=== PATIENT | female | born 2000 | race Hispanic/Latino ===

== ENCOUNTER 2025-04-25 09:20 | Outpatient (CLI) | payer OTHER, SELFPAY | END 2025-04-25 09:21 | disposition home or self-care (01) | LOC: ANHGOSHLAB 09:21 | PROVIDERS: Visit Provider Student in an Organized Health Care Education/Training Program | DX: O20.0 Threatened abortion (principal); Z3A.00 Weeks of gestation of pregnancy not specified | CPT/HCPCS: 36415; 84702 ==

== ENCOUNTER 2025-04-26 15:35 | Emergency (ER) | payer OTHER, SELFPAY ==
[2025-04-26 15:42] VITALS: BP 125/77; PULSE 73; RESP 16; TEMP 36.6; O2SAT 100
--- NOTE | 2025-04-26 16:30 | ED.PREGNANCY ---
HPI - General Chief complaint: Vaginal Bleeding Stated complaint: 8 weeks , vag bleeding for 3 days Time Seen by Provider: 04/26/25 16:08 History of Present Illness HPI Narrative: This is a 25-year-old female a approximately 10 weeks by last menstrual period who presents to the ED for vaginal bleeding. Patient states for the past 3 days, she has been having a brown discharge that appears somewhat like blood. She had an hCG performed when she 1st found out that she was and it was 5700. She began having this bleeding and had an hCG drawn a few days ago which was 7000 and then another 1 2 days ago which was 5700. She continues to have this bleeding was told to have her recheck level on Monday but was concerned so she came in today Related Data Home Medications ?Medication ?Instructions ?Recorded ?Confirmed ?Last Taken ?Type No Home Medications 12/09/24 12/09/24 Unknown History Allergies Allergy/AdvReac Type Severity Reaction Status Date / Time No Known Allergies Allergy Verified 04/26/25 15:36 Review of Systems Review of Systems: Gen.: Denies fevers or chills Eyes: Denies eye pain or visual change ENT: Denies congestion Respiratory: Denies shortness of breath or cough CV: Denies chest pain or palpitations GI: Denies abdominal pain nausea, emesis or diarrhea denies burning, urgency, frequency or hematuria Musculoskeletal: Denies back pain or muscle pain Neuro: Denies numbness, tingling, weakness or focal weakness Skin: Denies rash Except as documented, all other systems reviewed and negative [facility] Family History Family History Father Diabetes mellitus Grandparent Diabetes mellitus Social History Social History Smoking status: Current every day smoker Tobacco type: e-cigarettes/vaping Alcohol intake: never Substance use: never Substance use type: does not use Do You Feel Safe in your Home?: Yes Lack of Transportation: No Lack of Food: Never True Current Housing: I Have Housing Concerned About Future Housing: No Difficulty Paying Gas/Electric Bills: No Difficulty Paying for Meds: No Currently Unemployed: No Education: Associate Degree Difficulty w/ Childcare or Family Care: No Living arrangements: alone Additional living arrangements comments: single Occupation/Education: occupation Additional occupation/education comments: [employer] Gender identity (if verbalized by the patient): Female Sexual Orientation (if Verbalized by the Patient): Bisexual Exam Narrative: APPEARANCE: No acute distress, nontoxic, resting in bed EYES: EOMI HEENT: Normocephalic, atraumatic, OMM RESPIRATORY: No respiratory distress Clear to auscultation bilaterally with no rhonchi wheezing or rales. CARDIOVASCULAR: Regular rate and rhythm without murmurs rubs or gallops. ABDOMINAL: Soft, nontender, nondistended, no rebound or guarding MUSCULOSKELETAl: Moves all extremities. No clubbing, cyanosis or edema. NEURO: Awake and alert. Following commands, speech normal, no focal deficits SKIN:: Warm, dry. No rashes lesions or abrasions PSYCHIATRIC: Normal affect/mood, Course Vital Signs Vital signs: Vital Signs Temperature 97.9 F 04/26/25 15:42 Pulse Rate 73 04/26/25 15:42 Respiratory Rate 16 04/26/25 15:42 Blood Pressure 125/77 04/26/25 15:42 Pulse Oximetry 100 04/26/25 15:42 Oxygen Delivery Room Air 04/26/25 15:42 Temperature 97.9 F 04/26/25 15:42 Pulse Rate 73 04/26/25 15:42 Respiratory Rate 16 04/26/25 15:42 Blood Pressure 125/77 04/26/25 15:42 Pulse Oximetry 100 04/26/25 15:42 Oxygen Delivery Room Air 04/26/25 15:42 MDM - OB/Uterine Contractions MDM Narrative Medical decision making narrative: 25-year-old female Presenting for vaginal bleeding in 1st trimester. On initial evaluation patient was in no acute distress afebrile, hemodynamic stable. Differentials include but are not limited to: Abnormal uterine bleeding, abnormal vaginal bleeding, laceration, menses, , miscarriage, ectopic Notable exam findings: No tenderness palpation to the lower abdomen. Heart and lungs clear. I personally reviewed the patient's lab result. Notable lab findings: HCG quant 4000 which is down trending from previous Down trending hCG is likely suggestive of a miscarriage at this time. Given that she is not having any pain at this time, unlikely that she has an ectopic . Patient was educated on this expectant management and was given a referral to [facility], for further evaluation. Patient and family were agreeable to this plan. Given strict return precautions. Medical Records Attestation: I reviewed the patient's medical records. Lab Data Labs: Lab Results 04/26/25 Range/Units 16:26 Beta HCG, Quant 4172.50 mIU/ML Discharge Plan Discharge Clinical Impression: Threatened Patient Disposition: Home Condition: Stable Instructions: Antibiotic Form, Miscarriage (ED) Additional Instructions: You are likely having a miscarriage at this time. This will likely complete in the next few days to a week. You were given a referral to [facility], to follow-up in the next week for re-evaluation. Return to the ED for any new or worsening symptoms. Patient Language: Thai Prescriptions: No Action No Home Medications Follow-up/Referrals: Liz Nogueira MD [Physician, BILING[employer] INSIDE SALES REPRESENTATIVE] UNKNOWN,DOCTOR [Non-Staff]
== END 2025-04-26 17:43 | disposition home or self-care (01) ==
PROVIDERS: Emergency Provider Student in an Organized Health Care Education/Training Program; PCP Internal Medicine
DX: O20.0 Threatened abortion (principal); Z3A.10 10 weeks gestation of pregnancy
CPT/HCPCS: 36415; 84702; 99283

== ENCOUNTER 2025-04-29 19:57 | Emergency (ER) | payer OTHER, SELFPAY ==
--- NOTE | ~2025-04-29 | US_ITS ---
EXAM/PROCEDURE: US OB <=14 wk fetus w TV HISTORY: r/o ectopic COMPARISON: None available. TECHNIQUE: Endovaginal and transabdominal ultrasound performed. FINDINGS: Probable intrauterine gestational sac present. No heart tone identified. No discrete pole seen. Right ovary: 4.3 x 2.4 x 3.1 cm. Probable 2.1 cm corpus luteal cyst. Left ovary: 2.8 x 1.6 x 2.5 cm. Both ovaries otherwise appear normal in echotexture. No free fluid seen. IMPRESSION: Likely intrauterine gestation with no pole or heart tone identified. Correlate with follow-up quantitative hCG levels and short interval follow-up ultrasound in 5-7 days or sooner if clinically appropriate to confirm viability. Reviewed, dictated and finalized at location A. PROCESS MILLER HEAD ASSISTANT IMPRESSION: Likely intrauterine gestation with no pole or heart ton e identified. Correlate with follow-up quantitative hCG levels and short interv al follow-up ultrasound in 5-7 days or sooner if clinically appropriate to conf irm viability.
[2025-04-29 20:05] VITALS: TEMP 37.1
[2025-04-29] MEDS: SODIUM CHLORIDE 0.9% IV 1,000 ML 999 ML IV CONT (20:37)
[2025-04-29] MEDS: MORPHINE SULFATE (*CRX) 4 MG/ML INJ IV PUSH (20:38)
[2025-04-29] MEDS: ONDANSETRON INJ 4 MG/2 ML VIAL IV PUSH (20:55)
[2025-04-29 20:56] LABS: Hematocrit 37.8 % (37.0-47.0); Hemoglobin 12.7 g/dL (12.0-15.0); Immature Granulocyte Percent A 0.3 % (0-0.5); Lymphocytes Absolute Auto 1.73 K/mm3 (0.9-3.2); Mean Corpuscular HGB Conc 33.6 g/dl (32-36); Mean Corpuscular Hemoglobin 29.1 pg (26-34); Mean Corpuscular Volume 86.7 fl (80-100); Nucleated Red Blood Cells Absolute Auto 0.000 K/mm3 (0.0-0.012); Nucleated Red Blood Cells Perc 0.0 % (0.0-0.2); Platelet Count Result 242 k/mm3 (150-375); Red Blood Count 4.36 M/mm3 (4.2-5.4); White Blood Count 8.8 K/mm3 (4.5-10.0)
[2025-04-29 21:06] LABS: Alanine Aminotransferase 59 U/L (6-35); Albumin Level 4.6 g/dL (3.5-5.1); Alkaline Phosphatase 75 U/L (38-126); Anion Gap 10 mmol/L (4-12); Aspartate Amino Transferase 39 U/L (14-36); Bilirubin,Total 0.3 mg/dL (0.2-1.3); Blood Urea Nitrogen 11 mg/dL (7-17); Calcium 9.2 mg/dL (8.4-10.2); Carbon Dioxide 20 mmol/L (22-30); Chloride 107 mmol/L (98-107); Estimated CRCL calculation 104 ml/min; Estimated Glomerular Filt Rate > 60; Glucose 94 mg/dL (65-110); Potassium 3.9 mmol/L (3.4-5.0); Sodium 137 mmol/L (137-145); Total Protein 7.6 g/dL (6.3-8.2)
--- NOTE | 2025-04-29 21:41 | PC.NURSE ---
Radiology notified to page out US for r/o ectopic.
--- NOTE | 2025-04-29 21:59 | ED.ABDPAIN ---
HPI - Abdominal Pain General Chief Complaint: Abdominal Pain Stated Complaint: miscarriage Time Seen by Provider: 04/29/25 20:21 History of Present Illness HPI narrative: Patient is a 25-year-old female who presents to the ER with lower abdominal pain and vaginal bleeding. Patient reports she saw her OBGYN this morning. Her pain and vaginal bleeding has worsened throughout the day. Patient denies any urinary symptoms, acute back pain, or recent fevers. She reports her hormone levels have continued to go down since she was seen here on April 26, 2025. Patient reports she has not had any ultrasound to confirm an intrauterine . Related Data Home Medications ?Medication ?Instructions ?Recorded ?Confirmed ?Last Taken ?Type No Home Medications 12/09/24 12/09/24 Unknown History Allergies Allergy/AdvReac Type Severity Reaction Status Date / Time No Known Allergies Allergy Verified 04/29/25 09:58 Review of Systems Review of Systems: All systems reviewed & are unremarkable except as noted in HPI and below PMFSH Family History Family History Father Diabetes mellitus Grandparent Diabetes mellitus Social History Social History Smoking status: Current every day smoker Tobacco type: e-cigarettes/vaping Alcohol intake: never Substance use: never Substance use type: does not use Do You Feel Safe in your Home?: Yes Lack of Transportation: No Lack of Food: Never True Current Housing: I Have Housing Concerned About Future Housing: No Difficulty Paying Gas/Electric Bills: No Difficulty Paying for Meds: No Currently Unemployed: No Education: Associate Degree Difficulty w/ Childcare or Family Care: No Living arrangements: alone Additional living arrangements comments: single Occupation/Education: occupation Additional occupation/education comments: [employer] Gender identity (if verbalized by the patient): Female Sexual Orientation (if Verbalized by the Patient): Bisexual Exam Narrative: GENERAL: Well appearing, well-nourished, non-toxic, in no acute distress. HEAD: Normocephalic, atraumatic. NECK: Supple. No adenopathy, no masses. RESPIRATORY: Airway patent, respirations nonlabored. Clear to auscultation bilaterally, no rales, rhonchi, wheezing. CARDIOVASCULAR: Regular rate and rhythm without murmurs, rubs, or gallops. Peripheral pulses 2+ and equal bilaterally. ABDOMINAL: Soft, right lower quadrant and left lower quadrant tenderness with palpation, nondistended, no hepatosplenomegaly. Normoactive BS. MUSCULOSKELETAL: Moves all extremities. Strength/ROM intact without gross deformities. SKIN: Warm, dry, pallor. No rashes. NEURO: A&O X3. Speech clear. Cranial nerves II-XII intact. No ataxic movements. PSYCHIATRIC: Appropriate mood and affect. Normal interaction. Course Vital Signs Vital signs: Vital Signs Temperature 37.1 C 04/29/25 20:05 Temperature 37.1 C 04/29/25 20:05 MDM - Abdominal Pain MDM Narrative Medical decision making narrative: Patient is a 25-year-old female who presents to the ER with lower abdominal pain and vaginal bleeding. Patient reports she saw her OBGYN this morning. Her pain and vaginal bleeding has worsened throughout the day. Patient denies any urinary symptoms, acute back pain, or recent fevers. She reports her hormone levels have continued to go down since she was seen here on April 26, 2025. Patient reports she has not had any ultrasound to confirm an intrauterine . Labs Ordered: CBC, CMP, beta hCG, UA Imaging Ordered: Vaginal ultrasound Medications Ordered: 1 L normal saline IV bolus, morphine 4 mg IV, Zofran 4 mg IV Results: Patient's ultrasound indicates flattened gestational sac in the lower uterine segment near the cervix. A yolk sac is identified. No definitive pole identified. The mean sac diameter 17 mm. Findings are suspicious for failure. Potential short-term interval follow-up should be based on clinical criteria, and correlation with serial beta hCG levels. The ovaries are unremarkable with incidental right ovarian corpus luteum cyst. No free fluid. Diagnosis: Threatened miscarriage, hematuria Consults: OBGYN, outpatient, Dr. López (already established) Patient Education/Shared MDM: Results of lab work and imaging shared with patient. She endorses improvement of symptoms following medication administration. Patient strongly advised to maintain hydration status upon discharge and follow-up with her OBGYN as needed. She will not be discharged home with any new prescriptions. Strict return precautions provided. Patient verbalized understanding and is in agreement with plan. Vital signs stable at time of discharge. All questions answered. Differential Diagnosis Differential diagnosis: Likely abdominal pain and other (Urinary tract infection, threatened , incomplete , demise) Lab Data Attestation: I reviewed the patient's lab results. 04/29/25 20:40 04/29/25 20:40 Labs: Lab Results 04/29/25 04/29/25 Range/Units 20:40 21:45 WBC 8.8 (4.5-10.0) K/mm3 RBC 4.36 (4.2-5.4) M/mm3 Hgb 12.7 (12.0-15.0) g/dL Hct 37.8 (37.0-47.0) % MCV 86.7 (80-100) fl MCH 29.1 (26-34) pg MCHC 33.6 (32-36) g/dl RDW 13.5 (11.5-14.5) % Plt Count 242 (150-375) k/mm3 MPV 11.3 H (7.4-10.4) fl Immature Gran % (Auto) 0.3 (0-0.5) % Neut % (Auto) 71.7 (45.5-73.1) % Lymph % (Auto) 19.6 (18.3-44.2) % [place] % (Auto) 6.6 (2.6-8.5) % Eos % (Auto) 1.2 (0-4.4) % Baso % (Auto) 0.6 (0.2-1.2) % Lymph # (Auto) 1.73 (0.9-3.2) K/mm3 [place] # (Auto) 0.6 (0.1-0.6) K/mm3 Eos # (Auto) 0.1 (0-0.3) K/mm3 Baso # (Auto) 0.1 (0.0-0.1) K/mm3 Abs Immat Gran (auto) 0.03 (0.00-0.031) K/mm3 Absolute Neuts (auto) 6.3 (1.3-6.7) K/mm3 Absolute Nucleated RBC 0.000 (0.0-0.012) K/mm3 Nucleated RBC % 0.0 (0.0-0.2) % Sodium 137 (137-145) mmol/L Potassium 3.9 (3.4-5.0) mmol/L Chloride 107 (98-107) mmol/L Carbon Dioxide 20 L (22-30) mmol/L Anion Gap 10 (4-12) mmol/L BUN 11 (7-17) mg/dL Creatinine 0.68 L (0.7-1.0) mg/dL Estim Creat Clear Calc 104 ml/min Estimated GFR > 60 (59 - ) Glucose 94 (65-110) mg/dL Calcium 9.2 (8.4-10.2) mg/dL Total Bilirubin 0.3 (0.2-1.3) mg/dL AST 39 H (14-36) U/L ALT 59 H (6-35) U/L Alkaline Phosphatase 75 (38-126) U/L Total Protein 7.6 (6.3-8.2) g/dL Albumin 4.6 (3.5-5.1) g/dL Beta HCG, Quant 1874.00 mIU/ML Urine Color Light red H (Yellow) Urine Appearance Turbid H (Clear) Urine pH 6.5 (5.0-9.0) Ur Specific [place] 1.030 (1.001-1.035) Urine Protein 1+ H (Negative) mg/dL Urine Glucose (UA) Negative (Negative) mg/dL Urine Ketones Negative (Negative) mg/dL Ur Blood (Man) 3+ H (Negative) Urine Nitrate Negative (Negative) Urine Bilirubin Negative (Negative) Urine Urobilinogen 1.0 (<2.0) mg/dL Leukocyte Esterase Rfl 1+ H (Negative) KATELYN/UL Urine RBC >100 H (0-2) /hpf Urine WBC 0-5 (0-3) /hpf Ur Squamous Epith Cells None seen (Few) /hpf Urine Bacteria None seen /hpf Urine Casts 0-2 Hyaline Casts Present (None) /lpf Imaging Data Attestation: I personally reviewed and interpreted this imaging study as follows: Radiologist's impression: Patient's ultrasound indicates flattened gestational sac in the lower uterine segment near the cervix. A yolk sac is identified. No definitive pole identified. The mean sac diameter 17 mm. Findings are suspicious for failure. Potential short-term interval follow-up should be based on clinical criteria, and correlation with serial beta hCG levels. The ovaries are unremarkable with incidental right ovarian corpus luteum cyst. No free fluid. Discharge Plan Discharge Clinical Impression: Incomplete , Vaginal bleeding affecting early , Hematuria Patient Disposition: Home Condition: Stable Instructions: Antibiotic Form, Miscarriage (ED) Additional Instructions: Please return to the ER with any worsening symptoms. Follow-up with your OBGYN as soon as possible. You may take Tylenol and/or Ibuprofen for pain control. Please remember to drink lots of water. Patient Language: Latvian Prescriptions: No Action No Home Medications Follow-up/Referrals: UNKNOWN,DOCTOR [Primary Care Provider] Yogesh López MD [Physician, VOUCHER EXAMINER] Stand Alone Forms: Work/School Release IP Time of Disposition: 23:43
[2025-04-29 22:18] LABS: Non Pathogenic Casts 0-2
[2025-04-29 22:19] LABS: Add Urine Microscopic? YES; Appearance Urine Turbid (Clear); Glucose Urine UA Negative (Negative); Leukocyte Esterase Ur 1+ LEU/UL (Negative); Nitrate Urine Negative (Negative); Specific Grav Ur 1.030 (1.001-1.035)
[2025-04-30] MEDS: KETOROLAC 15 MG/ML VIAL (*BKC) IV PUSH (00:01)
[2025-04-30 00:04] VITALS: BP 128/64; PULSE 66; RESP 14; TEMP 37; O2SAT 99
== END 2025-04-30 00:05 | disposition home or self-care (01) ==
PROVIDERS: Emergency Provider Registered Nurse
DX: O03.4 Incomplete spontaneous abortion without complication (principal); R31.9 Hematuria, unspecified; F17.290 Nicotine dependence, other tobacco product, uncomplicated
CPT/HCPCS: 36415; 76801; 76817; 80053; 81001; 84702; 85025; 87086; 96361; 96374; 96375; 99284; J1885; J2270; J2405; J7030